=== PATIENT | male | born 2000 | race African-American/Black ===

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

== ENCOUNTER 2022-03-16 12:07 | Emergency (ER) | payer BC, SELFPAY ==
--- NOTE | ~2022-03-16 | XR_ITS ---
EXAMINATION: XR shoulder RT min 2V DATE: 03/16/2022 13:08 INDICATION: Right shoulder pain post fall TECHNIQUE: AP internally and externally rotated, AP oblique externally rotated and transscapular Y vi ews of the right shoulder were obtained. COMPARISON: None FINDINGS: Normal alignment. No fracture. Glenohumeral joint is normal. The acromioclavicular joint is at the u pper limits of normal measuring 8 mm. There is however no associated soft tissue swelling to suggest an acromioclavicular joint separation. Soft tissues are unremarkable. Visualized portions of the righ t lung are clear. IMPRESSION: Borderline acromioclavicular joint interval of 8 mm but without associated soft tissue swelling to sultana ggest an acute post traumatic acromioclavicular joint separation. Reviewed, dictated and finalized at location B. IMPRESSION: Borderline acromioclavicular joint interval of 8 mm but without associated soft tissue swelling to suggest an acute post traumatic acromioclavicular joint sep aration.
[2022-03-16 12:31] VITALS: BP 115/66; PULSE 65; RESP 15; TEMP 36.7; O2SAT 100
--- NOTE | 2022-03-16 13:09 | PC.NURSE ---
Pt returned from radiology.
--- NOTE | 2022-03-16 13:45 | ED.UPPEXIN ---
HPI - Extremity Injury (Upper) General Chief Complaint: Extremity Injury, Upper Stated Complaint: right arm pain Time Seen by Provider: 03/16/22 12:47 History of Present Illness HPI narrative: Patient is a 21-year-old male who presents ER with right shoulder pain. He was rollerskating yesterday when he began to fall. He tried to catch himself on the wall but struck his shoulder. He felt a crunch. He continues to have range of motion but has discomfort with reaching towards his back or reaching forward. Did not strike his head or lose consciousness. No numbness or tingling in his extremity. Related Data Allergies Allergy/AdvReac Type Severity Reaction Status Date / Time No Known Allergies Allergy Verified 03/16/22 12:54 Review of Systems Musculoskeletal: Musculoskeletal: Reports arthralgias, Denies joint swelling and Denies muscle cramps Integumentary/Breasts: Skin/Breast: Denies erythema and Denies rash Neurologic: Denies syncope, Denies headache(s), Denies numbness and Denies weakness PMFSH Past Medical History Medical History (Updated 03/16/22 @ 13:52 by Skyler Loja MD) Brachial plexus injury, left Surgical History Surgical History (Updated 03/16/22 @ 13:49 by Skyler Loja MD) No pertinent past surgical history Exam Narrative: GENERAL: Well-appearing, well-nourished, and in no acute distress. HEAD: Normocephalic, atraumatic. ENT: Mucous membranes moist. CHEST: Clear to auscultation. No respiratory distress. HEART: Regular rate and rhythm. Normal peripheral pulses. EXTREMITIES: Limited range of motion left upper extremity due to brachial plexus injury as a child. Patient has discomfort with forward flexion and with internal rotation reaching towards midline of his back. However his range of motion is preserved. Has tenderness over the right AC process. No clavicular tenderness. SKIN: Warm, dry, no rash. NEURO: Alert and oriented x3. PSYCH: Normal mood and affect. Course Course Emergency Course: Patient informed of results and treatment plan. Declines sling. Discharge home. Vital Signs Vital signs: Vital Signs Temperature 98.0 F 03/16/22 12:31 Pulse Rate 65 03/16/22 12:31 Respiratory Rate 15 03/16/22 12:31 Blood Pressure 115/66 03/16/22 12:31 Pulse Oximetry 100 03/16/22 12:31 Oxygen Delivery Room Air 03/16/22 12:31 Temperature 98.0 F 03/16/22 12:31 Pulse Rate 65 03/16/22 12:31 Respiratory Rate 15 03/16/22 12:31 Blood Pressure 115/66 03/16/22 12:31 Pulse Oximetry 100 03/16/22 12:31 Oxygen Delivery Room Air 03/16/22 12:31 MDM - Extremity Injury (Upper) Imaging Data Radiologist's impression: ITS Impressions Shoulder X-Ray 03/16/22 13:09 IMPRESSION: Borderline acromioclavicular joint interval of 8 mm but without associated soft tissue swelling to suggest an acute post traumatic acromioclavicular joint separation. Discharge Plan Discharge Clinical Impression: shoulder Patient Disposition: Home, Self-Care Condition: Stable Instructions: Shoulder Sprain (ED), P.R.I.C.E. Treatment (ED) Additional Instructions: Return the ER if you suffer new injury, you have numbness or tingling in your arm, you have decreased range of motion, you have additional concerns. Prescriptions: New naproxen 375 mg tablet 375 mg PO BID Qty: 14 0RF Follow-up/Referrals: Bharathi Dunlap MD [Primary Care Provider] - 1 Week
== END 2022-03-16 14:04 | disposition home or self-care (01) ==
PROVIDERS: Emergency Provider Emergency Medicine; PCP Emergency Medicine
DX: S43.004A Unspecified dislocation of right shoulder joint, initial encounter (principal); V00.121A Fall from non-in-line roller-skates, initial encounter; Y93.51 Activity, roller skating (inline) and skateboarding
CPT/HCPCS: 73030; 99283; A4565

== ENCOUNTER 2023-02-10 19:50 | Emergency (ER) | payer BC, SELFPAY ==
[2023-02-10 19:58] VITALS: BP 119/65; PULSE 78; RESP 18; TEMP 37.1; O2SAT 99
[2023-02-10] MEDS: DICYCLOMINE HCL INJ 20 MG/2 ML VIAL IM (21:57)
[2023-02-10] MEDS: SODIUM CHLORIDE 0.9% IV 1,000 ML 999 ML IV CONT (21:57)
[2023-02-10] MEDS: ONDANSETRON INJ 4 MG/2 ML VIAL IV PUSH (21:57)
[2023-02-10 22:11] LABS: Basophils Percent Auto 0.2 % (0.2-1.2); Eosinophils Percent Auto 0.4 % (0-4.4); Hematocrit 43.9 % (42.0-52.0); Hemoglobin 14.3 g/dL (14.0-18.0); Immature Granulocyte Absolute 0.01 K/mm3 (0.00-0.031); Immature Granulocyte Percent A 0.2 % (0-0.5); Lymphocytes Absolute Auto 0.67 K/mm3 (0.9-3.2); Lymphocytes Percent Auto 13.9 % (18.3-44.2); Mean Corpuscular HGB Conc 32.6 g/dl (32-36); Mean Corpuscular Hemoglobin 27.7 pg (26-34); Mean Corpuscular Volume 84.9 fl (80-100); Mean Platelet Volume 10.7 fl (7.4-10.4); Monocytes Absolute Auto 0.4 K/mm3 (0.1-0.6); Monocytes Percent Auto 7.5 % (2.6-8.5); Neutrophils Absolute Auto 3.7 K/mm3 (1.3-6.7); Neutrophils Percent Auto 77.8 % (45.5-73.1); Platelet Count Result 227 k/mm3 (150-375); Red Blood Count 5.17 M/mm3 (4.6-6.20); Red Cell Distribution Width 12.9 % (11.5-14.5); White Blood Count 4.8 K/mm3 (4.5-10.0)
[2023-02-10 22:13] LABS: Appearance Urine Clear (Clear); Bilirubin Urine Negative (Negative); Blood Urine Negative (Negative); Color Urine Yellow (Yellow); Glucose Urine UA Negative (Negative); Ketones Urine Trace mg/dL (Negative); Leukocyte Esterase Ur Negative LEU/UL (Negative); Nitrate Urine Negative (Negative); Protein Urine Negative (Negative); Urobilinogen Urine 0.2 mg/dL (<2.0); pH Urine 5.5 (5.0-9.0)
[2023-02-10 22:14] LABS: Add Urine Microscopic? NO
[2023-02-10 22:16] VITALS: BP 117/58; PULSE 63; RESP 15; O2SAT 100
[2023-02-10 22:20] LABS: Alanine Aminotransferase 23 U/L (6-50); Albumin Level 3.9 g/dL (3.5-5.1); Alkaline Phosphatase 48 U/L (38-126); Anion Gap 5 mmol/L (8-16); Aspartate Amino Transferase 29 U/L (17-59); Bilirubin,Total 1.4 mg/dL (0.2-1.3); Blood Urea Nitrogen 16 mg/dL (9-20); Calcium 8.5 mg/dL (8.4-10.2); Carbon Dioxide 26 mmol/L (22-30); Chloride 104 mmol/L (98-107); Estimated CRCL calculation 110 ml/min; Estimated Glomerular Filt Rate > 60; Glucose 94 mg/dL (65-110); Lipase 72 U/L (23-300); Potassium 4.1 mmol/L (3.4-5.0); Sodium 135 mmol/L (137-145)
--- NOTE | 2023-02-10 23:27 | ED.GENADULT ---
HPI - General Adult General Chief complaint: Abdominal Pain Stated complaint: abdominal pain Time Seen by Provider: 02/10/23 21:08 History of Present Illness HPI narrative: Patient is a 22-year-old gentleman who presents the emergency department chief complaint of nausea vomiting and diarrhea. The patient reports that he started having some episodes today with diffuse cramping in his abdomen and reports that he had several bouts of diarrhea that were just pure water. Patient reports he has had several vomiting episodes but reports that his abdomen is feeling better now that he has vomited and had diarrhea. Patient states he still feels little dry and reports that he had a headache after this initially happened. Patient denies localizing pain in his abdomen and reports that he has had a prior appendectomy. Related Data Allergies Allergy/AdvReac Type Severity Reaction Status Date / Time No Known Allergies Allergy Verified 02/10/23 20:47 Review of Systems Review of Systems: A 10 system review of systems was completed on the patient and is negative except for what is stated in the HPI. Nursing and ancillary documentation was reviewed. [facility] Past Medical History Medical History Brachial plexus injury, left Surgical History Surgical History No pertinent past surgical history Exam Narrative: GENERAL: Well-appearing, well-nourished, and in no acute distress. HEAD: Normocephalic, atraumatic. EYES: PERRLA and EOMI. ENT: Nares clear, no rhinorrhea or epistaxis. Mucous membranes moist. NECK: Supple. CHEST: Clear to auscultation. No respiratory distress. HEART: Regular rate and rhythm. No murmur heard. Normal peripheral pulses. ABDOMEN: Soft, nontender, nondistended, normal active bowel sounds. EXTREMITIES: Normal range of motion. No edema. SKIN: Warm, dry, no rash. NEURO: No focal deficits. Alert and oriented x3. PSYCH: Normal mood and affect. Course Vital Signs Vital signs: Vital Signs Temperature 37.1 C 02/10/23 19:58 Pulse Rate 78 02/10/23 19:58 Respiratory Rate 18 02/10/23 19:58 Blood Pressure 119/65 02/10/23 19:58 Pulse Oximetry 99 02/10/23 19:58 Oxygen Delivery Room Air 02/10/23 19:58 Temperature 37.1 C 02/10/23 19:58 Pulse Rate 63 02/10/23 22:16 Respiratory Rate 15 02/10/23 22:16 Blood Pressure 117/58 L 02/10/23 22:16 Pulse Oximetry 100 02/10/23 22:16 Oxygen Delivery Room Air 02/10/23 19:58 Medical Decision Making MDM Narrative Medical decision making narrative: Differential diagnosis includes gastroenteritis, dehydration, viral diarrhea, colitis, diverticulitis. Patient's exam is improved to the point that he is not really having any tenderness. Patient improved after IV fluids and antiemetics. Laboratory studies were obtained on the patient which showed a white blood cell count 4.8 electrolytes were within normal limits liver enzymes were normal with the exception of a bilirubin of 1.4 urinalysis showed trace ketones but otherwise normal Given the patient is currently feeling much better and is asymptomatic patient will be discharged home to follow-up with his primary care provider. Vital Signs Vital Signs: Vital Signs Temperature 37.1 C 02/10/23 19:58 Pulse Rate 78 02/10/23 19:58 Respiratory Rate 18 02/10/23 19:58 Blood Pressure 119/65 02/10/23 19:58 Pulse Oximetry 99 02/10/23 19:58 Oxygen Delivery Room Air 02/10/23 19:58 Temperature 37.1 C 02/10/23 19:58 Pulse Rate 63 02/10/23 22:16 Respiratory Rate 15 02/10/23 22:16 Blood Pressure 117/58 L 02/10/23 22:16 Pulse Oximetry 100 02/10/23 22:16 Oxygen Delivery Room Air 02/10/23 19:58 Lab Data 02/10/23 22:04 02/10/23 22:04 Labs: Lab Results 02/10/23 Range/Units 22:04 WBC 4.8 (4.
[2023-02-10 23:29] VITALS: BP 121/74; PULSE 63; RESP 16; O2SAT 100
== END 2023-02-10 23:46 | disposition home or self-care (01) ==
PROVIDERS: Emergency Provider Emergency Medicine; PCP Emergency Medicine
DX: K52.9 Noninfective gastroenteritis and colitis, unspecified (principal)
CPT/HCPCS: 36415; 80053; 81003; 83690; 85025; 96361; 96372; 96374; 99284; J0500; J2405; J7030

== ENCOUNTER 2023-10-12 23:57 | Emergency (ER) | payer BC, SELFPAY ==
--- NOTE | ~2023-10-12 | XR_ITS ---
XR abdomen/kub 1V DATE: 10/13/2023 07:26 INDICATION: Right abdominal pain, painful urination TECHNIQUE: 2 AP views COMPARISON: None FINDINGS: Normal appearance of the renal collecting systems without hydronephrosis. No ureteral dilat ation. The urinary bladder appears normal. The psoas shadows are intact. No visceromegaly. No bowel obstruction. IMPRESSION: No urinary tract obstruction or hydronephrosis Reviewed, dictated and finalized at Location A. Reviewed, dictated and finalized at location A. NGUAL TEACHER AIDE
--- NOTE | ~2023-10-12 | CT_ITS ---
EXAMINATION: CT abdomen pelvis w con DATE: 10/13/2023 06:09 INDICATION: Right lower quadrant abdominal pain. Dysuria. TECHNIQUE: Computed tomography (CT) of the abdomen and pelvis was performed with 100 CC Omnipaque 350 intravenous contrast. Automated exposure control and iterative reconstruction technique were employe d. Exam dose: 371.88 mGy-cm total exam DLP. COMPARISON: 11/25/2020 abdominal ultrasound examination, reported normal FINDINGS: The lung bases are clear. Normal heart size. No pericardial or pleural effusion. The liver, spleen, pancreas, and adrenal glands and kidneys appear normal. The gallbladder is present. No gallbladder wall thickening or pericholecystic fluid or fat stranding. No bile duct or pancreatic duct dilatation. There is a 3 x 4.2 mm calcification in the right lateral pelvic area that the cysts posterolateral up per aspect of the urinary bladder. There are a couple of additional right pelvic and 3 left pelvic ca lcifications. Most if not all of these may be calcified pelvic phleboliths. Due to limited intra-abdo guillermo and pelvic fat. It is difficult to trace the ureters. No hydronephrosis of either kidney is not ed. Delayed KUB is requested to further evaluate the possibility of ureteral calculus. The urinary bladder is unremarkable. No bladder wall thickening. Prostate gland and seminal vesicles appear normal. No bowel obstruction or intraperitoneal free air is detected. No CT evidence of appendicitis is noted . Included skeletal structures are unremarkable. IMPRESSION: Bilateral pelvic calcifications; delayed KUB is ordered to assess for any possible urete ral calculus. There is no hydronephrosis of either kidney. No other significant abnormality Reviewed, dictated and finalized at Location A. Reviewed, dictated and finalized at location A. TAL ACCOUNT SUPERVISOR IMPRESSION: Bilateral pelvic calcifications; delayed KUB is ordered to assess for any possible ureteral calculus. There is no hydronephrosis of either kidney . No other significant abnormality
[2023-10-13] VITALS (10 sets, daily range): BP systolic 131–135; BP diastolic 67–82; PULSE 53–61; RESP 10–15; TEMP 36.3; O2SAT 95–100
[2023-10-13 04:34] LABS: Appearance Urine Clear (Clear); Bilirubin Urine Negative (Negative); Blood Urine Negative (Negative); Color Urine Yellow (Yellow); Glucose Urine UA Negative (Negative); Ketones Urine Trace mg/dL (Negative); Leukocyte Esterase Ur Negative LEU/UL (Negative); Nitrate Urine Negative (Negative); Protein Urine Negative (Negative); Specific Grav Ur 1.031 (1.001-1.035)
[2023-10-13 04:45] LABS: Add Urine Microscopic? NO
--- NOTE | 2023-10-13 04:52 | ECG_ITS ---
Measurements Intervals [place] Rate: 56 P: 72 KS: 156 QRS: 70 QRSD: 90 T: 64 QT: 398 QTc: 387 Interpretive Statements SINUS BRADYCARDIA VOLTAGE CRITERIA FOR LVH ST ELEVATION IN ANTEROLAT/INF LEADS- PROBABLY EARLY REPOLARIZATION ABNORMALITY BASELINE ARTIFACT- I, II, AVR, AVL, V1, V3 BORDERLINE ECG NO PREVIOUS ECG AVAILABLE FOR COMPARISON Electronically Signed On 10-13-2023 8:22:39 [employer] DATA WAREHOUSE DEVELOPER by Jarvis Agosto D.O.
[2023-10-13] MEDS: MORPHINE SULFATE (*CRX) 4 MG/ML INJ IV PUSH (05:13)
[2023-10-13] MEDS: SODIUM CHLORIDE 0.9% IV 1,000 ML 999 ML IV CONT (05:13)
[2023-10-13 05:29] LABS: Basophils Percent Auto 0.7 % (0.2-1.2); Eosinophils Absolute Auto 0.1 K/mm3 (0-0.3); Eosinophils Percent Auto 2.4 % (0-4.4); Hematocrit 45.1 % (42.0-52.0); Hemoglobin 13.9 g/dL (14.0-18.0); Immature Granulocyte Absolute 0.02 K/mm3 (0.00-0.031); Immature Granulocyte Percent A 0.5 % (0-0.5); Lymphocytes Absolute Auto 2.28 K/mm3 (0.9-3.2); Lymphocytes Percent Auto 53.9 % (18.3-44.2); Mean Corpuscular HGB Conc 30.8 g/dl (32-36); Mean Corpuscular Hemoglobin 26.8 pg (26-34); Mean Corpuscular Volume 86.9 fl (80-100); Mean Platelet Volume 10.6 fl (7.4-10.4); Monocytes Absolute Auto 0.3 K/mm3 (0.1-0.6); Monocytes Percent Auto 7.1 % (2.6-8.5); Neutrophils Absolute Auto 1.5 K/mm3 (1.3-6.7); Neutrophils Percent Auto 35.4 % (45.5-73.1); Platelet Count Result 227 k/mm3 (150-375); Red Blood Count 5.19 M/mm3 (4.6-6.20); Red Cell Distribution Width 12.6 % (11.5-14.5); White Blood Count 4.2 K/mm3 (4.5-10.0)
[2023-10-13 05:40] LABS: Lactic Acid Reflex 1.1 mmol/L (0.7-2.0)
[2023-10-13 05:42] LABS: Alanine Aminotransferase 19 U/L (6-50); Albumin Level 4.4 g/dL (3.5-5.1); Alkaline Phosphatase 52 U/L (38-126); Anion Gap 5 mmol/L (8-16); Aspartate Amino Transferase 31 U/L (17-59); Bilirubin,Total 0.9 mg/dL (0.2-1.3); Blood Urea Nitrogen 22 mg/dL (9-20); CRP < 0.5 mg/dL (<1.0); Calcium 9.2 mg/dL (8.4-10.2); Carbon Dioxide 28 mmol/L (22-30); Chloride 105 mmol/L (98-107); Estimated CRCL calculation 99 ml/min; Estimated Glomerular Filt Rate > 60; Glucose 94 mg/dL (65-110); INR 1.1; Lipase 407 U/L (23-300); Potassium 4.3 mmol/L (3.4-5.0); Prothrombin Time 14.1 Seconds (11.1-14.7); Sodium 138 mmol/L (137-145)
[2023-10-13 05:43] LABS: Partial Thromboplastin Time 36.1 SECONDS (22.3-36.8)
[2023-10-13 06:27] LABS: Chlamydia trachomatis NOT DETECTED (NOT DETECTE); Neisseria gonorrhoeae PCR NOT DETECTED (NOT DETECTE)
--- NOTE | 2023-10-13 06:34 | ED.MALEGU ---
HPI - Male Genitourinary General Chief complaint: Urogenital-Male Stated complaint: abd pain Time Seen by Provider: 10/13/23 04:53 Source: patient Limitations: no limitations History of Present Illness HPI Narrative: Patient presents to the ER for discomfort when he urinates for the past 2-3 days. This feels the same as when he was diagnosed with with an STI, chlamydia in the past which he was treated to completion. Admits to not wearing protection with intercourse recently. Denies anal intercourse. Denies sore throat, fever, diarrhea, vomiting, nausea, chest pain, shortness of breath, eye redness, rash, testicular pain or swelling, penile lesions, penile discharge, arthralgias, myalgias, anal lesions, recent injuries, recent illness. Patient denies any known STI exposure but states this is the exact same was it felt when he had an STI in the past about 1.5 years ago. Patient also admits to a few days of intermittent RLQ soreness that is mainly present with movement, denies history of this discomfort in the past, has not tried anything for it. Related Data Allergies Allergy/AdvReac Type Severity Reaction Status Date / Time No Known Allergies Allergy Verified 10/13/23 05:24 Review of Systems Review of Systems: A 10 system review of systems was completed on the patient and is negative except for what is stated in the HPI. Nursing and ancillary documentation was reviewed. PMFSH Past Medical History Medical History Brachial plexus injury, left Surgical History Surgical History No pertinent past surgical history Comments At time of signature, I have reviewed and agree with nursing past medical, surgical, social and family history unless otherwise noted. Please see the nursing chart for further information. There is no relevant family history pertinent to the presenting complaint Exam Narrative: CONST: No acute distress. Well nourished. HENMT: Head is normocephalic and atraumatic. Moist mucous membranes. No posterior oropharynx erythema. EYES: No conjunctival icterus, injection, or pallor. PERRL. NECK: No meningeal signs. RESP: Able to speak in full sentences. Normal respiratory effort. CTAB. CARDIO: Regular rate. Regular rhythm. 2+ DP and radial pulses bilaterally. GI: Nondistended. No tenderness to palpation. Soft. SKIN: No rashes or lesions noted on exposed skin. NEURO: Oriented x3. Moves all extremities. EXTREM: No pedal edema. PSYCH: Normal affect. : General: Yes no CVA tenderness Male General Exam: Yes normal external exam and No Genital lesions present Penis: Yes normal penis and Yes circumcised Scrotum: scrotum normal and no scrotal swelling Testes: Testes normal, epididymides normal, no epidiymal tenderness, no testicular swelling and no testicular tenderness Course Vital Signs Vital signs: Vital Signs Temperature 97.4 F L 10/13/23 00:00 Pulse Rate 56 L 10/13/23 00:00 Respiratory Rate 14 10/13/23 00:00 Blood Pressure 135/67 10/13/23 00:00 Pulse Oximetry 100 10/13/23 00:00 Temperature 97.4 F L 10/13/23 00:00 Pulse Rate 61 10/13/23 08:37 Respiratory Rate 15 10/13/23 08:37 Blood Pressure 132/82 10/13/23 08:37 Pulse Oximetry 99 10/13/23 08:37 MDM - Male Genitourinary MDM Narrative Medical decision making narrative: Patient presents as noted above, vitals stable. Discussed plan for analgesia, IVF, laboratory analysis, imaging, reassessment. Patient appears in no acute distress, informed of all results and potential diagnosis. Shared decision making performed regarding empiric treatment and plan is to treat patient empirically for Chalmydia and Gonorrhea with ceftriaxone and doxycycline (first dose in ER and prescription). Anticipatory guidance provided. Instructed to refrain from intercourse until 1 week after symptoms resolve. Olim[place]
[2023-10-13 06:43] LABS: Trichomonas Vag PCR NOT DETECTED (NOT DETECTE)
[2023-10-13] MEDS: DOXYCYCLINE HYCLATE 100 MG TABLET PO (07:00)
[2023-10-13 07:53] LABS: Influenza A QL RT-PCR Negative (Negative); Influenza B QL RT-PCR Negative (Negative); SARS-CoV-2 RNA PCR Negative (Negative)
[2023-10-13 08:31] LABS: RSV RNA, RT-PCR Negative (Negative)
== END 2023-10-13 08:39 | disposition home or self-care (01) ==
PROVIDERS: Emergency Provider Student in an Organized Health Care Education/Training Program; PCP Emergency Medicine
DX: N34.2 Other urethritis (principal); R10.9 Unspecified abdominal pain; Z20.822 Contact with and (suspected) exposure to COVID-19; R00.1 Bradycardia, unspecified
CPT/HCPCS: 36415; 74018; 74177; 80053; 81003; 83605; 83690; 83735; 85025; 85610; 85730; 86140; 87491; 87591; 87637; 87661; 93005; 96361; 96365; 96375; 99284; A9270; J0696; J2270; J7030; Q9967